=== PATIENT | male | born 1975 | race African-American/Black ===

== ENCOUNTER 2019-12-19 14:12 | Emergency (ER) | payer MEDICAID ==
[~2019-12-19] VITALS: Ht 185.4 cm; Wt 131.0 kg
[2019-12-19 14:16] VITALS: BP 140/88
== END 2019-12-19 14:50 | disposition left against medical advice (07) ==
LOC: ER 14:33
DX: R42 Dizziness and giddiness (principal); Z53.21 Procedure and treatment not carried out due to patient leaving prior to being seen by health care provider